=== PATIENT | male | born 1975 | race African-American/Black ===

== ENCOUNTER 2019-01-26 05:03 | Day surgery (SDC) | payer OTHER ==
[~2019-01-26] VITALS: Ht 170.2 cm; Wt 79.4 kg
[2019-01-26 06:02] LABS: HEMATOCRIT 37.9 % (42.0-54.0); HEMOGLOBIN 13.1 g/dL (13.5-17.5); MCH 30.7 pg (26.0-34.0); MCHC 34.6 g/dL (31.0-37.0); MCV 88.8 fL (80.0-100.0); MEAN PLATELET VOLUME 9.2 fL (7.4-10.4); RBC 4.27 10x6/uL (4.20-6.10); RDW 12.9 % (11.5-14.5)
[2019-01-26] MEDS ORDERED: NORVASC5 MG PO (06:21)
[2019-01-26] MEDS ORDERED: BAYER CHEWABLE81 MG PO (06:21)
[2019-01-26] MEDS ORDERED: LIPITOR40 MG PO (06:21)
[2019-01-26] MEDS ORDERED: VASOTEC10 MG PO (06:22)
[2019-01-26] MEDS ORDERED: HYDROCHLOROTHIA25 MG PO (06:22)
[2019-01-26] MEDS ORDERED: FLOMAX0.4 MG PO (06:23)
[2019-01-26] MEDS ORDERED: IBUPROFEN600 MG PO (06:23)
[2019-01-26] MEDS ORDERED: XOPENEX HFA15 GM INH (06:24)
[2019-01-26 06:30] VITALS: BP 124/72; Ht 170.2 cm; Wt 79.4 kg
[2019-01-26 06:34] LABS: ANION GAP 13.8 mmol/L (8-16); CALCIUM 9.5 mg/dL (8.5-10.1); CARBON DIOXIDE 30.7 mmol/L (21.0-32.0); CREATININE - SERUM 1.2 mg/dL (0.6-1.3); POTASSIUM - SERUM 3.5 mmol/L (3.5-5.1)
--- NOTE | 2019-01-26 09:45 | NUR ---
REMOVED LMA. PT STILL VERY SLEEPY WILL NOT WAKE UP. VSS. WILL CTM.
--- NOTE | 2019-01-26 10:18 | OP ---
PATIENT NAME: CESARIO GHOTRA MEDICAL RECORD: [id number] :77 LOCATION:[facility] ADMISSION DATE: SURGEON: MICKI HANKS MD DATE OF OPERATION: 01/26/2019 SURGEON: Micki Hanks MD ANESTHESIA: General anesthesia by Donna Nguyen CRNA. DIAGNOSIS: Obstructive benign prostatic hypertrophy. PROCEDURE: Transurethral resection of the prostate. FINDINGS: Obstructive bladder neck. Single ureteral orifices bilaterally with no bladder tumors. BLOOD LOSS: Minimal. SPECIMENS: Prostate resection chips. CLINICAL HISTORY: This is a 43-year-old male, who is a prisoner. He has obstructive voiding symptoms with urinary frequency and urgency. He has been on medications for BPH without success. He comes today to have a TURP done. He is not allergic to any medications. We gave him Ancef acid condenser to the OR. DESCRIPTION OF PROCEDURE: The patient was given induction of general anesthesia. He was then placed into dorsal lithotomy position and prepped and draped. A 17-Botswanan cystoscope was used for visualization. There are no penile urethral strictures. The lateral lobes are not obstructive. He has bladder neck stenosis. Other findings are as outlined above. We then switched to the 26-B[place]wanan resectoscope with 24-Botswanan resection loop. At the level of the bladder neck to just proximal to the verumontanum, a cut was made in the 6 o'clock position. We then started resecting each of the lateral lobes in turn. There was really minimal tissue to be resected and then the bladder neck was wide open. The ureteral orifices are single and located at a distance away from the bladder neck. They are intact at the end of the procedure. The resection chips were removed using the Turn evacuator. Any arterial bleeding, which we found were coagulated. At the end of the procedure, a 22-B[place]wanan 3-way Armendariz catheter was inserted into the bladder. The balloon was inflated with 20 cc of sterile water. The inflow port was capped using a catheter plug. The catheter was then put to bag drainage. The [facility] today. The [facility] will remove the Armendariz catheter in 7 days. TRANSINT:[id number] Voice Confirmation ID: [id number] DOCUMENT ID: [id number] MICKI HANKS MD at 1018 CC: [id number] DICTATION DATE: 01/26/19935 SPARE HAND CARDING: 01/26/1947 [facility] [address] [address]
== END 2019-01-26 11:20 ==
LOC: D.OPS 05:03
PROVIDERS: Anesthesiology; ATTEND Urology
DX: N40.1 Benign prostatic hyperplasia with lower urinary tract symptoms (principal); N13.8 Other obstructive and reflux uropathy; Z01.812 Encounter for preprocedural laboratory examination